=== PATIENT | female | born 1990 | race Caucasian/White ===

== ENCOUNTER 2017-04-26 09:06 | Emergency (ER) | payer OTHER, SELFPAY ==
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
--- NOTE | 2017-04-26 11:15 | RAD ---
LEFT WRIST THREE VIEWS: History: Wrist pain. FINDINGS: Transverse fracture of the distal radius involves the radial styloid and extends to the articular héctor face. There is associated fracture of the ulnar styloid with slight displacement. IMPRESSION: Fractured distal radius and ulna. POS: [facility]
[2017-04-26] MEDS ORDERED: HYDROcodone/Acetaminophen 10/325 mg Tablet ONE (11:19)
== END 2017-04-26 12:00 | disposition home or self-care (01) ==
LOC: ERS 09:06
DX: S52.512A Displaced fracture of left radial styloid process, initial encounter for closed fracture (principal); S52.612A Displaced fracture of left ulna styloid process, initial encounter for closed fracture; S80.02XA Contusion of left knee, initial encounter; Z87.891 Personal history of nicotine dependence; V43.52XA Car driver injured in collision with other type car in traffic accident, initial encounter; W22.11XA Striking against or struck by driver side automobile airbag, initial encounter
CPT/HCPCS: 29125

== ENCOUNTER 2017-05-07 11:16 | Day surgery (SDC) | payer OTHER, SELFPAY ==
[2017-05-03 13:33] VITALS: BMI 26.7
[2017-05-07] MEDS ORDERED: Fentanyl 250 MCG/5 ML VIAL ONE (11:18)
[2017-05-07] MEDS ORDERED: Midazolam HCl 2 mg/2 ml Vial ONE (11:18)
[2017-05-07] MEDS ORDERED: CEFAZOLIN/Water 2 GM/20 ML SYRINGE ONE (11:27)
[2017-05-07] MEDS ORDERED: Zolpidem Tartrate 5 MG TAB PO PRN (11:45)
[2017-05-07] MEDS ORDERED: HYDROcodone/Acetaminophen 10/325 mg Tablet PO PRN ×2 (11:45)
[2017-05-07] MEDS ORDERED: Promethazine HCl 25 MG/ML VIAL IM PRN (11:45)
[2017-05-07] MEDS ORDERED: Ondansetron HCl/PF 4 MG/2 ML Vial IVP PRN (11:45)
[2017-05-07] MEDS ORDERED: Ketorolac Tromethamine 30 MG/ML VIAL IVP PRN (11:45)
[2017-05-07] MEDS ORDERED: traMADol HCl 50 MG TAB PO PRN ×2 (11:45)
[2017-05-07] MEDS ORDERED: Fentanyl 100 MCG/2 ML VIAL IV PRN (11:45)
[2017-05-07] MEDS ORDERED: Ropivacaine 0.2% 550 ML 550 ML NERVE BLCK SCH (11:45)
[2017-05-07] MEDS ORDERED: HYDROmorphone 0.5 MG/0.5 ML SYRINGE ONE (13:12)
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
--- NOTE | 2017-05-07 15:41 | RAD ---
LEFT WRIST RADIOGRAPHS TWO VIEWS: Date: 05-07-17 Provided Clinical History: Post op. FINDINGS: Comparison is made with the study dated 04-26-17. Frontal and lateral spot fluoroscopic post procedura l images demonstrate interval placement of a screw transfixing the previously described nondisplaced intraarticular styloid fracture with subsequent improved alignment. Ulnar styloid fracture is redemon strated. IMPRESSION: As above. POS: [facility]
[2017-05-07] MEDS ORDERED: Ropivacaine 0.2% HCl/PF (40 MG/20 ML VIAL) ONE (16:40)
[2017-05-07] MEDS ORDERED: Ropivacaine 0.5% HCl/PF (150 MG/30 ML VIAL) ONE (16:40)
[2017-05-07] MEDS ORDERED: Ondansetron HCl/PF 4 MG/2 ML Vial ONE (17:12)
[2017-05-07] MEDS ORDERED: Propofol 200 MG/20 ML VIAL ONE (17:12)
[2017-05-07] MEDS ORDERED: Dexamethasone 20 MG/5 ML VIAL ONE (17:12)
== END 2017-05-07 15:23 | disposition home or self-care (01) ==
LOC: SDC 11:16
PROVIDERS: ATTEND Orthopaedic Surgery
PROC: 0PSJ34Z Reposition Left Radius with Internal Fixation Device, Percutaneous Approach (ICD-10-PCS; principal; 2017-05-07)
DX: S52.512A Displaced fracture of left radial styloid process, initial encounter for closed fracture (principal); Z88.5 Allergy status to narcotic agent; W19.XXXA Unspecified fall, initial encounter
CPT/HCPCS: 76001; A4306; C1713; J1100; J1170; J2250; J2405; J2704; J2795; J3010